=== PATIENT | female | born 1995 | race Hispanic/Latino ===

== ENCOUNTER 2025-03-07 20:21 | Emergency (ER) | payer SELFPAY ==
--- NOTE | ~2025-03-07 | XR_ITS ---
EXAM: XR ankle RT min 3V, XR foot RT min 3V DATE: 03/07/2025 21:24 HISTORY: pain s/p fall . COMPARISON: None available. FINDINGS: Images of the foot are limited by obliquity in the frontal image and lack of a true medial oblique view. Normal mineralization. Oblique fracture of the distal right fibula at the level of the joint line (Waller type B), with mild posterior medial displacement. Transverse fracture of the medial malleolus with posterior displacement and distraction. Comminuted appearing posterior malleolar frac ture with posterior displacement. The talar dome is posteriorly displaced relative to the anterior po rtion of the tibial plafond and remains associated with the displaced posterior portion. Tiny ossific fragment adjacent to the articulation between the navicular and first cuneiform. IMPRESSION: Trimalleolar fracture of the right ankle with posterior tibiotalar dislocation. Small ossific fragment adjacent to the articulation between the navicular and first cuneiform, may re present a small avulsion fracture fragment. CT of the foot would be helpful for further evaluation. Limited ability to assess for tarsometatarsal alignment in the provided images. Reviewed, dictated and finalized at location K. IMPRESSION: Trimalleolar fracture of the right ankle with posterior tibiotalar dislocation. Small ossific fragment adjacent to the articulation between the navicular and f irst cuneiform, may represent a small avulsion fracture fragment. CT of the aicha t would be helpful for further evaluation. Limited ability to assess for tarsometatarsal alignment in the provided images.
--- NOTE | ~2025-03-07 | XR_ITS ---
Right ankle Technique: AP and lateral views were obtained. Clinical History: Post reduction COMPARISON: 03/07/2025 at 9:18 PM Findings: Status post closed reduction of previously noted tibiotalar joint subluxation. Fractures of the distal tibia and distal fibula are unchanged in alignment. There is markedly improved alignment of the tibiotalar joint, with osseous alignment now near anatomic at the tibiotalar joint. Soft tissu es are otherwise unremarkable. Impression: Successful reduction of the tibiotalar joint with now near anatomic alignment. Stable trimalleolar fractures of the distal tibia and distal fibula. Reviewed, dictated and finalized at location . Impression: Successful reduction of the tibiotalar joint with now near anatomic alignment. Stable trimalleolar fractures of the distal tibia and distal fibula.
[2025-03-07 20:20] VITALS: BP 135/85; PULSE 89; RESP 17; TEMP 36.7; O2SAT 99
--- OUTSIDE RECORDS SUMMARY | 2025-03-07 21:07 | XMS_ITS | Encounter Summary ---
Author Organization [employer] Address [address] [address] Phone Care Team Providers Care Lead Machinist Name Role Phone Myrtle Castaneda APRN Primary Care Prov ider Encounter Details Date Type Department Care Team (Late st Contact Info) Description 02/10/2025 Results Follow-Up [facility] Medicine [address] [place] [address] Laura Espinoza FNP-C [address] [place] [address] VITAMIN B12 AND FOLATE, Vitamin D (1,25 Dihydroxy) Social History Tobacco Use Types Packs/Day Years Used Date Smoking Tobacco: Never Passive Smoke Exposure: Never Smokeless Tobacco: Never Alcohol Use Standard Drinks/Week Comments Never 0 (1 standard drink = 0.6 oz pur e alcohol) PHQ-9 Answer Date Recorded Patient Health Questionnaire-9 Score 0 01/04/2025 Intimate Partner Violence Answer Date R ecorded Feels physically and emotionally safe Not on wilian e 01/12/2022 Fear of partner Not on file 01/12/2022 Housing Stability Answer Date Recorded Housing situation Not on file 01/12/2022 Worried about losing housing Not on file 05/2022 Estimated Date of Delivery Comme nts Yes 07/24/2025 Based on last me nstrual period of 10/17/2024 (Exact Date) Sex and Gender Information Value Date Recorded Sex Assigned at Female 01/08/2024 9:53 AM EDT Legal Sex Female 10:55 AM EST Gender Identity Female 12/06/2021 10:55 AM EST Sexual Orientation Straight 12/06/2021 10 :55 AM EST documented as of this encounter Miscellaneous Notes * Result Encounter Note - ASHLY Chaudhary - 02/10/2025 10:03 AM EDT Hi good morning, I never ordered this labs. This is a OBG pt. She was last seen by you. Thanks. documented in this encounter Plan of Treatment Not on file documented as of this encounter Visit Diagnoses Not on filedocumented in this encounter Additional Health Concerns Assessment Noted Time PHQ-9 Depression Total Score: 0 01/05/20 25 9:13 AM EDT documented as of this encounter Care Teams Lead Machinist Relationship Specialty Start Date End Date Myrtle Castaneda APRN [address] [place] [address] PCP - General Family Medicine 03/03/24 documented as of this encounter
--- OUTSIDE RECORDS SUMMARY | 2025-03-07 21:07 | XMS_ITS | Clinical Summary ---
Author Organization [facility] Address [address] [place] [id number] Care Team Providers Care Exercise Teacher Name Role Phone Unavailable Primary Care Provider Unavailabl e Social History Tobacco Use Types Packs/Day Years Used Date Smoking Tobacco: Never Assessed [facility] Housing Answer Date Recorded Living Situation Not on file 05/23/2023 Housing Problems Not on file 05/23/2023 [facility] Safety Answer Date Recorded Threatened Not on file 05/23/2023 Insulted Not on file 05/23/2023 Physically Hurt Not on file 05/23/2023 Scream Not on file 05/23/2023 Comments Unknown Sex and Gender Information Value Date Recorded Sex Assigned at Not on file Legal Sex Female 6:31 AM EDT Gender Identity Not on file Sexual Orientation Not on file Plan of Treatment Not on file Advance Directives Documents on File Type Date Recorded Patient Electrical Helper Expl anation Advanced Directive Patient Generated 03/22/2021 ADVANCE DIRECTIVE DOCUMENT
--- OUTSIDE RECORDS SUMMARY | 2025-03-07 21:07 | XMS_ITS | Clinical Summary ---
Author Organization [facility] Address [address] [address] Phone Care Team Providers Care Industrial Technology Education Teacher Name Role Phone Myrtle Castaneda APRN Primary Care Prov ider Allergies No known active allergies Medications levonorgestrel-eth inyl estradiol (Aviane) 0.1-20 MG-MCG tabletIndications: Encounter for surveillance of contraceptive pills Take 1 tablet by mouth in the morning. 84 tablet 3 08/27/2024 9:33 AM EST 4 03/19/20 25 Active albuterol (Ventolin HFA) 108 (90 Base) MCG/ACT inhalerIndications :Cough, unspecified type Inhale 2 puffs every 4 (four) hours if needed for wheezing or shortness of breath. 18 g 09/08/2024 3:04 PM EST 4 09/08/20 25 Active multivitamin () 27-0.8 MG tabletIndications: Amenorrhea Take 1 tablet by mouth in the morning. 30 tablet 11 5 Active aspirin 81 MG chewable tablet Chew 1 tablet (81 mg) in the morning. 90 tablet 2 02/04/2025 9:41 AM EDT 5 02/05/20 26 Active hydrocortisone (Anusol-HC) 2.5 % rectal cream Insert into the rectum in the morning and at bedtime. 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 We reviewed the role of low dose aspirin (81 mg daily) for pre-e prevention in view of multiple moderate risk for developing pre-e including nulliparity, obesity, family history of pre-e (mother/sister), socioeconomic factors (, low socioeconomic status), AMA, personal history factors (low weight or SGA), previous adverse outcomes, >10 year interval or IVF . Therapy should be initiated 12 weeks gestational and ideally prior to 16 weeks gestation and continuing until delivery. However, the USPSTF endorses initiation to 26 weeks gestation. Supervision of other normal , antepartum ([facility] ([facility]) 12/07/2024 Overview (02/24/2025): GA at initial visit = 7w2d Final EDC = based on LMP = 1st sono (date) = 12/14 @ 8 w 2 d Initial BMI = 29 [] Baby ASA = ordered 02/01/25 [] Early GTT screening = [] NOB LABS = O+/antibody screen negative/H&H 12.9/39.4/Rubella immune/HbsAg not reactive/HCV not reactive/RPR Negative/HIV Negative/Pap no abnormalities/GC&CT Negative/Sickle cell Negative/UDS Negative/Urine Cx Negative [] HgbA1C = 5.0 [] Pap = NILM [] NIPT = low risk, female [] Carrier = negative [] Serum AFP (15-22.6 weeks) = ordered 02/01/25 [] Anatomy U/S =02/23/25 18w3d breech, posterior placenta, 3VC, normal cord insertion, EFW 284 g (89%), No identified abnormalities. No abnormalities. Posterior low-lying placenta 1.2 cm from cervical os. Recommendation Follow up ultrasound for growth and reassessment of the placental location at 30-32 weeks [] 24-28 wk labs = [] contraception = [] Breast/bottle = [] Gender of fetus = [] circumcision if boy = [] 30-32 week US for growth = [] 36 weeks labs= Immunizations: [] COVID vac = [] Flu vac = [] TDAP (28+0 - 36+6 wga) = [] RSV/Abrysvo (32+0 - 36+6 wga) = Plan: [] Delivery location = [] Anesthesia in labor = H/O scoliosis 09/09/2024 Chronic midline low back pain without sciatica 1 11/10/2023 Hemorrhoids 09/09/2024 Depression 09/09/2024 Overview (12/07/2024): 12/07/24 Symptoms are stable. Patient denies suicidal or homicidal ideation. Plan to continue current management. Plan to re-evaluate patient at followup; patient also referred to counseling services and community resources. Patient was advised to call or come in if symptoms worsen. Patient verbalized understanding. Estimated Date of Delivery Comme nts Yes 07/24/2025 Based on last me nstrual period of 10/17/2024 (Exact Date) Resolved Problems Problem Noted Date Diagnosed Date Resolved Date Amenorrhea 11/16/2024 12/07/2024 Overweight (BMI 25.0-29.9) 11/16/2024 0 12/07/2024 Assessment & Plan (11/16/2024 2:27 PM EST): Counseled on lifestyle & dietary modifications to decrease intake of greasy, fatty foods and increase physical activity. Urinary tract infection without hematuria 01/24/2024 09/08/2024 Assessment & Plan (01/24/2024 4:43 PM EDT): Patient present with no symptom, but her urine culture shows growth of several different bacteria, which is why it is interpreted as a UTI for which treatment with Amoxicillin 500 mg BID for 7 days. Follow up 2 weeks. increase fluids to minimum 2 liter per day sitz bath for comfort otc meds for pain tylenol or ibuprofen rx as ordered rtc if not improved in 7 days Encounter for routine adult health examination with abnormal findings 01/08/202409/08 Assessment & Plan (01/08/2024 11:44 AM EDT): Patient present for annual physical, Lab work was ordered and follow up in 2 weeks. Encounters Date Type Department Care Team Description 02/10/2025 Results Follow-Up [facility] [address] [place] [phone] Laura Espinoza FNP-C VITAMIN B12 AND FOLATE, Vitamin D (1,25 Dihydroxy) 02/04/2025 10:00 AM EDT Lab [facility] [address] [place] [phone] Other fatigue 02/04/2025 Orders Only [address] [phone] Mara Stack APRN 02/04/2025 Travel 02/02/2025 9:00 AM EDT Lab [facility] [address] [place] [phone] 02/01/2025 1:00 PM EDT Routine [address] [phone] Mara Stack APRN Supervision of other normal , antepartum ([facility] ([facility]) (Primary Dx); 15 weeks gestation of ([facility] ([facility]) 02/01/2025 Travel 01/04/2025 1:15 PM EDT Routine [address] [phone] Mara Justin APRN Supervision of other normal , antepartum ([facility]) (Primary Dx); 11 weeks gestation of ([facility] ([facility]) 01/04/2025 Travel 12/14/2024 1:00 PM EDT Ancillary Procedure [facility] ([facility] [place] [place]) [address] [place] [address] Supervision of other normal , antepartum ([facility] ([facility]) 12/14/2024 Travel 12/07/2024 1:30 PM EST Initial [facility] [address] [place] [address] Farida Rush NP GA: 7w2d 12/07/2024 Travel from Last 3 Months Immunizations Immunization Administration Dates Next Due HPV 9-Valent 02/25/2020 Influenza, split virus, triv alent, injectable, contains preservative 09/22/2020 MMR 02/25/2020,01/28/2020 TD (adult), 2 Lf tetanus tox oid, preservative free, adsorbed 02/25/2020 Tdap 01/28/2020 Family History Medical History Relation Name Comments No Known Problems Father No Known Problems Mother Relation Name Status Comments Father Alive Mother Alive Social History Tobacco Use Types Packs/Day Years Used Date Smoking Tobacco: Never Passive Smoke Exposure: Never Smokeless Tobacco: Never Tobacco Cessation:Counseling Given: Yes Alcohol Use Standard Drinks/Week Comments Never 0 [...] Orientation Straight 12/06/2021 10 :55 AM EST Last Filed Vital Signs Vital Sign Reading Time Taken Comments Blood Pressure 100/65 02/01/2025 1:16 PM EDT Pulse 80 02/01/2025 1:16 PM EDT Temperature 36.2 C (97.1 F) 02/01/2025 1:16 PM EDT Respiratory Rate 19 02/01/2025 1:16 PM EDT Oxygen Saturation 98% 02/01/2025 1:16 PM EDT Inhaled Oxygen Concentration - - Weight 82.6 kg (182 lb 3.2 oz) 02/01/2025 1:16 P M EDT Height 165.1 cm (5' 5) 02/01/2025 1:16 PM EDT Body Mass Index 30.32 02/01/2025 1:16 PM EDT Plan of Treatment Health Maintenance Due Date Last Done Comments Dental Oral Exam 1994 Dental Prophylaxis 1994 Dental X-Rays 1997 Hepatitis B Vaccines (1 of 3 - 19+ 3-dose series) 2013 HPV Vaccines (2 - 3-dose series) 03/24/2020 02/25/2020 Varicella Vaccines (1 of 2 - 13+ 2-dose series) 03/24/2020 DTaP/Tdap/Td Vaccines (3 - T d or Tdap) 08/27/2020 02/25/2020, 01/28/2020 HPV/Cotest 2024 COVID-19 Vaccine (3 - 2023-2 5 season) 2024 03/01/2021, 02/01/2021 Well Adult Exam (Age 18+ Annual Physical) 01/07/2025 01/08/2024 Influenza Vaccine (Season Ended) 2025 09/22/2020 Cervical Cancer Screening 12/08/2027 Pap Smear 12/08/2027 12/07/2024, 06/01/2021, 04/03/2019 Zoster Vaccines (1 of 2) 2044 MMR Vaccines Completed 02/25/2020, 01/28/2020 HIV Screening Completed 12/07/2024, 01/09/2024, 04/03/2019 Hepatitis C Screening Completed 12/07/2024 , 01/09/2024 HIB Vaccines Aged Out No longer eligi ble based on patient's age to complete this topic Hepatitis A Vaccines Aged Out No long er eligible based on patient's age to complete this topic IPV Vaccines Aged Out No longer eligi ble based on patient's age to complete this topic Meningococcal B Vaccine Aged Out No l onger eligible based on patient's age to complete this topic Meningococcal Vaccine Aged Out No judy verenice eligible based on patient's age to complete this topic Pneumococcal Vaccine: 0-49 Years Aged Out No longer eligible b ased on patient's age to complete this topic Rotavirus Vaccines Aged Out No longer eligible based on patient's age to complete this topic Procedures Procedure Name Priority Date/Time Associated Diagnosis Comments US OB 14+ WEEKS ANATOMY SCAN Routine 02/23/2025 Supervision of other normal , antepartum (HCC (HHS) VITAMIN D (1,25 DIHYDROXY) Routine 02/04/2025 9:05 AM EDT Other fatigue VITAMIN B12 AND FOLATE Routine 9:05 AM EDT Other fatigue TEST IN QUESTION- MISLABELED NAME Routine 02/02/2025 9:19 AM EDT ALPHA FETOPROTEIN, MATERNAL Routine 02/02/2025 9:18 AM EDT Supervision of other normal , antepartum (HCC (HHS) POCT URINALYSIS DIPSTICK - MANUALLY RESULTED Routine 02/01/2025 1:26 PM EDT Supervision of other normal , antepartum (HCC (HHS) HORIZON 4 (SMA, CF, FRAGILE X, DMD) Routine 01/15/2025 4:47 PM EDT Supervision of other normal , antepartum (HCC (HHS) PANORAMA TEST Routine 11:33 PM EDT Supervision of other normal , antepartum (HCC (HHS) POCT URINALYSIS DIPSTICK - MANUALLY RESULTED Routine 01/04/2025 1:14 PM EDT 11 weeks gestation of (HCC (HHS) US OB LIMITED 1+ FETUSES Routine 025 1:33 PM EDT Supervision of other normal , antepartum (HCC (HHS) DRUG MONITORING TEMPLATE Routine 025 2:29 PM EST URINE CULTURE Routine 12/07/2024 2:29 PM EST Supervision of other normal , antepartum (HCC (HHS) DRUG MONITOR, PANEL 1, SCREEN, URINE Routine 12/07/2024 2:29 PM EST Supervision of other normal , antepartum (HCC (HHS) RUBELLA ANTIBODY, IGG Routine 12/07/2024 2:29 PM EST Supervision of other normal , antepartum (HCC (HHS) RPR, REFLEX TO TITER Routine 12/07/2024 2:29 PM EST Supervision of other normal , antepartum (HCC (HHS) HIV-1/2 ANTIGEN AND ANTIBODIES W/REFLEXES Routine 12/07/2024 2:29 PM EST Supervision of other normal , antepartum (HCC (HHS) HEPATITIS C AB W/RFL Routine 12/07/2024 2:29 PM EST Supervision of other normal , antepartum (HCC (HHS) HEMOGLOBINOPATHY EVALUATION Routine 12/07/2024 2:29 PM EST Supervision of other normal , antepartum (HCC (HHS) HEPATITIS B SURFACE ANTIGEN Routine 12/07/2024 2:29 PM EST Supervision of other normal , antepartum (HCC (HHS) CBC Routine 12/07/2024 2:29 PM EST Supervision of other normal , antepartum (HCC (HHS) ANTIBODY SCREEN Routine 12/07/2024 2:29 PM EST Supervision of other normal , antepartum (HCC (HHS) ABO/RH Routine 12/07/2024 2:29 PM EST Supervision of other normal , antepartum (HCC (HHS) HEMOGLOBIN A1C Routine 12/07/2024 2:29 PM EST Supervision of other normal , antepartum (HCC (HHS) IMAGE-GUIDED PAP W/AGE BASED SCR,W/CT/NG/TRICH Routine 12/07/2024 2:01 PM EST Supervision of other normal , antepartum (HCC (HHS) from Last 3 Months Results * US OB 14+ weeks anatomy scan (02/23/2025) Anatomical Region Laterality Modality Body Ultrasound 02/23/2025 Mara Stack APRN IMG OB US PROCEDURES F inal Result * (ABNORMAL) Vitamin D (1,25 Dihydroxy) (02/04/2025 9:05 AM EDT) VITAMIN D, 1, 25 (OH)2, TOTAL 108(H) 18 - 72 pg/mL [facility] CALCITRIOL(1, 25 DI-OH VIT D) 108 pg/mL [facility] VITAMIN D2, 1, 25 (OH)2 <8 pg/mL [facility] Comment: Vitamin D3, 1,25(OH)2 indicates both endogenous production and supplementation. Vitamin D2, 1,25(OH)2 is an indicator of exogenous sources, such as diet or supplementation. Interpretation and therapy are based on measurement of Vitamin D,1,25(OH)2, Total. This test was developed and its analytical performance characteristics have been determined by [facility], [place], [place]. It has not been cleared or approved by the FDA. This assay has been validated pursuant to the CLIA regulations and is used for clinical purposes. Blood Venous blood specimen / Unknown 02/04/2025 9:05 AM EDT 02/05/2025 12:49 AM EDT Laura SOLIS-C LAB BLOOD ORDERABLES Final Result [facility] [address] [place], [place] , [place] * VITAMIN B12 AND FOLATE (02/04/2025 9:05 AM EDT) VITAMIN B12 346 200 - 1,100 pg/mL [facility] Comment: Please Note: Although the reference range for vitamin B12 is 200-1100 pg/mL, it has been reported that between 5 and 10% of patients with values between 200 and 400 pg/mL may experience neuropsychiatric and hematologic abnormalities due to occult B12 deficiency; less than 1% of patients with values above 400 pg/mL will have symptoms. FOLATE >24.0 ng/mL [facility] Comment: Reference Range Low: <3.4 Borderline: 3.4-5.4 Normal: >5.4 Blood Venous blood specimen / Unknown 02/04/2025 9:05 AM EDT 02/05/2025 12:49 AM EDT Laura Espinoza [facility] LAB BLOOD ORDERABLES Final Result Performing Organization Address City/[facility]/ZIP Co de Phone Number [facility] [address] [place] [address], * TEST IN QUESTION- MISLABELED NAME (02/02/2025 9:19 AM EDT) MESSAGE SEE NOTE [facility] Comment: The labeling of the requisition and/or specimen(s) is in question. SPECIMEN TYPE SEE NOTE [facility] Comment:FLUORIDE/OXALATE (GR AY-TOP) WHOLE BLOOD TEST ORDERED [phone] [facility] NAME ON REQUISITION: XIOMARA Sahu [facility] DATE RECEIVED: [phone] [facility] Comment: To prevent further delays in testing please contact us immediately, please call [phone] ([phone]). 02/02/2025 9:19 AM EDT 02/02/2025 11:34 PM EDT Mara Justin YORDAN LAB BLOOD ORDERABLES Final Re sult [facility] [address] [place] [address], * Alpha fetoprotein, maternal (02/02/2025 9:18 AM EDT) INTERPRETATIONS SEE NOTE [facility] Comment: Screen negative for open NTD. NTD RISK 1 IN [address] [facility] AFP 42.9 ng/mL [facility] AFP MOM 1.68 [facility] COMMENT SEE NOTE [facility] Comment: This patient's BRADLEY (estimated date of delivery) was used to calculate the gestational age. The AFP test result indicates that this patient is screen negative for open NTD. It should be noted that normal test results can never guarantee the of a normal baby and that 2-3% of newborns have some type of physical or mental defect, many of which are undetectable through any known diagnostic technique. COMMENT SEE NOTE [facility] Comment: This is a screening test, not a diagnostic test. This risk assessment report is based in part on demographic data provided by the ordering physician. Please notify the laboratory promptly if any data are incorrect. For assistance with recalculations, please call your local [facility] laboratory. For assistance with interpretation of these results, please contact your Local [facility] genetic counselor or call [phone]). Interpretive Cutoffs Screen Positive for Open NTD: > or = 2.50 adjusted MOM > or = 1.90 adjusted MOM for insulin-dependent diabetics > or = 4.00 adjusted MOM for twins > or = 3.50 adjusted MOM for twins insulin-dependent diabetics > or = 4.50 adjusted MOM for triplets For additional information, please refer to http://education.[employer]/faq/POP41x0 (This link is being provided for informational/ educational purposes only.) GESTATIONAL AGE 15.4 weeks [facility] MATERNAL WEIGHT 179 lbs [facility] EST'D DATE OF DELIVERY 07/24/2025 [facility] BRADLEY DETERMINED BY LMP [facility] MOTHER'S ETHNIC ORIGIN [facility] NUMBER OF FETUSES 1 [facility] INSULIN DEP DIABETES NO [facility] REPEAT SPECIMEN NO [facility] HX OF NEURAL TUBE DEFECTS NO [facility] PREV DOWN SYND NO [facility] DONOR EGG NO [facility] DONOR AGE - EGG RETRIEVAL NOT GIVEN [facility] Blood Venous blood specimen / Unknown 02/02/2025 9:18 AM EDT 02/05/2025 12:49 AM EDT Mara Stack APRN LAB BLOOD ORDERABLES F inal Result [facility] [address] [place] [address], * POCT Urinalysis Dipstick - Manually Resulted (02/01/2025 1:26 PM EDT) Only the most recent of2 resultswithin the time period is included. Color, UA Yellow Yellow Clarity, UA Clear Clear Glucose, UA Negative Negative Bilirubin, UA Negative Negative Ketones, UA Negative Negative Spec Grav, UA 1.020 1.001 - 1.030 Blood, UA Negative Negative pH, UA 6.0 5.0 - 8.0 Protein, UA Negative Negative Urobilinogen, UA 0.2 0.2 - 1.0 Leukocytes, UA Negative Negative Nitrite, UA Negative Negative Appearance, Fluid Clear Clear Urine 02/01/2025 1:26 PM EDT Mara Stack APRN POINT OF CARE TEST ENT ER/EDIT ORDERABLES Final Result * HORIZON 4 (SMA, CF, FRAGILE X, DMD) (01/15/2025 4:47 PM EDT) REPORT SUMMARY Negative 01/15/2025 4:47 PM EDT [facility] Comment:Negative for 4 out o f 4 diseases. CYSTIC FIBROSIS Negative 4:47 PM EDT [facility] DUCHENNE/CRUZ MUSCULAR DYSTROPHY Negative 01/15/2025 4:47 PM EDT [facility] FRAGILE X SYNDROME Negative 01/15/2025 4:47 PM EDT [facility] Comment: NEGATIVE Fragile X Syndrome (X-linked) results 30 and 30 CGG repeats were detected in the FMR1 genes. SPINAL MUSCULAR ATROPHY Negative 01/15/2025 4:47 PM EDT [facility] Comment: NEGATIVE Spinal Muscular Atrophy (SMA) Results SMN1: Two copies; [id number]: absent; the absence of the [id number] variant decreases the chance to be a silent (2+0) carrier. PANEL NOTES See Notes 01/15/2025 4:47 PM EDT [facility] REPORT NOTE See Notes 01/15/2025 4:47 PM EDT [facility] FOOTNOTES See Notes 01/15/2025 4:47 PM EDT [facility] Comment: Please see the attached PDF for information regarding Conditions, Methodology, Disclaimers, and further information. Test performed by [facility]. : [id number] [facility], [facility], [address], [place] [address] CLIA ID #[id number] CLIA Day Care Director: Chantelle Young, Ph.D., FACMG Blood specimen (specimen) Venous blood specimen / Unknown 01/15/2025 4:47 PM EDT Mara Justin APRN LAB MOLECULAR DIAGNOSTICS ORD ERABLES Final Result [facility] [address] [place] [address], * [facility] (01/13/2025 11:33 PM EDT) REPORT SUMMARY LOW RISK 01/13/2025 11:33 PM EDT [facility] Comment:LOW RISK REPORT NOTE See Notes 01/13/2025 11:33 PM EDT [facility] GENDER OF FETUS Female 11:33 PM EDT [facility] FRACTION 9.3% 01/13/2025 11:33 PM EDT [facility] TRISOMY 21 RESULT TEXT Low Risk 01/13/2025 11:33 PM EDT [facility] TRISOMY 21 AGE-BASED RISK TEXT 1/543 (0.18%) 01/13/2025 11:33 PM EDT [facility] TRISOMY 21 RISK SCORE TEXT <1/10,000 (<0.01%) 01/13/2025 11:33 PM EDT [facility] TRISOMY 18 RESULT TEXT Low Risk 01/13/2025 11:33 PM EDT [facility] TRISOMY 18 AGE-BASED RISK TEXT 10/07,263 (0.08%) 01/13/2025 11:33 PM EDT [facility] TRISOMY 18 RISK SCORE TEXT <1/10,000 (<0.01%) 01/13/2025 11:33 PM EDT [facility] TRISOMY 13 RESULT TEXT Low Risk 01/13/2025 11:33 PM EDT [facility] TRISOMY 13 AGE-BASED RISK TEXT 3,980 (0.03%) 01/13/2025 11:33 PM EDT [facility] TRISOMY 13 RISK SCORE TEXT <1/10,000 (<0.01%) 01/13/2025 11:33 PM EDT [facility] MONOSOMY X RESULT TEXT Low Risk 01/13/2025 11:33 PM EDT [facility] MONOSOMY X AGE-BASED RISK TEXT 1255 (0.39%) 01/13/2025 11:33 PM EDT [facility] MONOSOMY X RISK SCORE TEXT <1/10,000 (<0.01%) 01/13/2025 11:33 PM EDT [facility] TRIPLOIDY RESULT TEXT Low Risk 06/2025 11:33 PM EDT [facility] 22Q11.2 DELETION SYNDROME RESULT TEXT Low Risk 01/13/2025 11:33 PM EDT [facility] 22Q11.2 DELETION SYNDROME POPULATION-BASED RISK TEXT 1/2,000 01/13/2025 11:33 PM EDT [facility] 22Q11.2 DELETION SYNDROME RISK SCORE TEXT 1/12,000 01/13/2025 11:33 PM EDT [facility] FOOTNOTES See Notes 01/13/2025 11:33 PM EDT [facility] Comment: Testing Methodology DNA isolated from maternal blood, which contains placental DNA, is amplified at specific loci using a targeted PCR assay and is sequenced using a high- throughput sequencer. fraction is determined using a proprietary algorithm incorporating data from single nucleotide polymorphism-based (SNP-based) next-generation sequencing [Perguy E et al. Obstet Gynecol. 2014 Aug;124(2 Pt 1):210-8]. If there is sufficient fraction, sequencing data is analyzed using a proprietary SNP- based algorithm to determine the copy number for chromosomes 13, 18, 21, X and Y. If ordered, specific microdeletions will be evaluated using similar methodology [Tammy LIND et al. Am J Obstet Gynecol. 2015 Dec;212(3):332.e1-9]. If the fraction is insufficient, signal enhancement and/or an additional algorithm to determine whether there is an increased risk for triploidy, trisomy 18, and trisomy 13 may be utilized [Jericho et al. Ultrasound Obstet Gynecol 2019; 53:73-79]. However, some samples will not produce a result due to failure to meet the necessary quality thresholds. This test has been validated on women with a de guzman, twin or egg donor of at least nine weeks gestation. A result will not be available for higher order multiples and multiple gestation pregnancies with an egg donor or surrogate, or bone marrow transplant recipients. Complete test panel is not available for twin gestations and pregnancies achieved with an egg donor or surrogate. For twin pregnancies with a fraction value below the threshold for analysis, a sum of the fractions for both twins will be reported. As this assay is a screening test and not diagnostic, false positives and false negatives can occur. High risk test results need diagnostic confirmation by alternative testing methods. Low risk results do not fully exclude the diagnosis of any of the syndromes nor do they exclude the possibility of other chromosomal abnormalities or defects, which are not a part of this test. Potential sources of inaccurate results include, but are not limited to, mosaicism, low fraction, limitations of current diagnostic techniques, or misidentification of samples. This test will not identify all deletions associated with each microdeletion syndrome. This test has been validated for deletions > = 0.5 Mb within the 22q11.2 A-D region. This test has been validated on full region deletions only for 1p36 deletion syndrome, Cri-du-chat syndrome, Prader Willi syndrome and Angelman syndrome and may be unable to detect smaller deletions. Microdeletion risk score may be dependent upon fraction, as deletions on the maternally inherited copy are difficult to identify at lower fractions. Test results should always be interpreted by a clinician in the context of clinical and familial data with the availability of genetic counseling when appropriate. Disclaimers The extraction, library preparation, and sequencing of this test were performed by [facility] [address], [place] [address] (CLIA ID [id number]). The data analysis and reporting of this test were performed by [facility] [address], [place] [address] (CLIA ID [id number]). The performance characteristics of this test were developed by [facility].(CLIA ID [id number]). This test has not been cleared or approved by the U.S. Food and Drug Administration (FDA). These laboratories are regulated under CLIA as qualified to perform high-complexity testing. 2020 [facility]. All Rights Reserved. Please refer to the attached PDF report Reviewed By: Ayanna Lopez M.D., Ph.D., [facility], Senior Seed Sorter [facility] Day Care Director: Chantelle Young, Ph.D., [facility] IF THE ORDERING PROVIDER HAS QUESTIONS OR WISHES TO DISCUSS THE RESULTS, PLEASE CONTACT US AT [phone] #[phone]. Ask for the [facility] onion farmer. Blood specimen (specimen) Venous blood specimen / Unknown 01/13/2025 11:33 PM EDT Mara Justin APRN LAB MOLECULAR DIAGNOSTICS ORD ERABLES Final Result [facility] [address] [place] [address], * HEPATITIS C AB W/RFL (12/07/2024 2:29 PM EST) HEPATITIS C AB NON-REACTI VE NON-REACTI VE [facility] Comment: HCV antibody was non-reactive. There is no laboratory evidence of HCV infection. In most cases, no further action is required. However, if recent HCV exposure is suspected, a test for HCV RNA (test code 17032) is suggested. For additional information, please refer to http://education.[employer]/faq/RDG780 (This link is being provided for informational/ educational purposes only.) Blood Venous blood specimen / Unknown 12/07/2024 2:29 PM EST 12/07/2024 10:59 PM EST Farida Acevedojb LAB BLOOD ORDERABLES Final Resul t Performing Organization Address [facility] de Phone Number [facility] [address] [place] [address], * RPR, Reflex to Titer (12/07/2024 2:29 PM EST) Pathologist [facility] RPR NON-REACTI VE NON-REACTI VE [facility] Comment: No laboratory evidence of syphilis. If recent exposure is suspected, submit a new sample in 2-4 weeks. Blood Venous blood specimen / Unknown 12/07/2024 2:29 PM EST 12/07/2024 10:59 PM EST Farida Acevedojb LAB BLOOD ORDERABLES Final Resul t Performing Organization Address [facility] de Phone Number [facility] [address] [place] [address], * DRUG MONITOR, PANEL 1, SCREEN, URINE (12/07/2024 2:29 PM EST) AMPHETAMINES UR NEGATIVE <500 ng/mL [facility] Comment: See Note A See Note A BARBITURATES UR NEGATIVE <300 ng/mL [facility] Comment: See Note A See Note A BENZODIAZEPINES UR NEGATIVE <100 ng/mL [facility] Comment: See Note A See Note A COCAINE METABOLITE UR NEGATIVE <150 ng/mL [facility] Comment: See Note A See Note A MARIJUANA METABOLITE UR NEGATIVE <20 ng/mL [facility] Comment: See Note A See Note A METHADONE METABOLITE UR NEGATIVE <100 ng/mL [facility] Comment: See Note A See Note A OPIATES NEGATIVE <100 ng/mL [facility] Comment: See Note A See Note A OXYCODONE-UR NEGATIVE <100 ng/mL [facility] Comment: See Note A See Note A PHENCYCLIDINE UR NEGATIVE <25 ng/mL [facility] Comment: See Note A See Note A CREATININE UR 122.6 > or = 20.0 mg/dL [facility] PH URINE 7.6 4.5 - 9.0 [facility] OXIDANT UR NEGATIVE <200 mcg/mL [facility] Urine 12/07/2024 2:29 PM EST 12/07/2024 11:14 PM EST [facility] ORDERABLES Final Resul t Performing Organization Address [facility] Co de Phone Number [facility] [place] [address] [place] [address], * DRUG MONITORING TEMPLATE (12/07/2024 2:29 PM EST) NOTES AND COMMENTS SEE NOTE Q [facility] Comment: This drug testing is for medical treatment only. Analysis was performed as non-forensic testing and these results should be used only by healthcare providers to render diagnosis or treatment, or to monitor progress of medical conditions. Note A: The results are presumptive; based only on screening methods, and they have not been confirmed by a definitive method. Healthcare Providers needing Interpretation assistance, please contact us at [phone] ) M-F, 8am to 10pm EST 12/07/2024 2:29 PM EST 12/07/2024 11:14 PM EST Farida Rush NP LAB BLOOD ORDERABLES Final Resul t Performing Organization Address [facility] Co de Phone Number [facility] [address] [place] [address], [place] * ABO/Rh (12/07/2024 2:29 PM EST) ABO/RH O [facility] RH RH(D) POSITIVE [facility] Comment: For additional information, please refer to http://education.[employer]/faq/MTF819 (This link is being provided for informational/ educational purposes only.) Blood Venous blood specimen / Unknown 12/07/2024 2:29 PM EST 12/07/2024 10:59 PM EST [facility] LAB BLOOD BANK TEST ORDERABLES F inal Result Performing Organization Address [facility]/ZIP Co de Phone Number [facility] [address] [place] [address], * Rubella antibody, IgG (12/07/2024 2:29 PM EST) RUBELLA IGG ABS 1.40 Index [facility] Comment: Index Interpretation ----- <0.90 Not consistent with immunity 0.90-0.99 Equivocal > or = 1.00 Consistent with immunity The presence of rubella IgG antibody suggests immunization or past or current infection with rubella virus. Blood Venous blood specimen / Unknown 12/07/2024 2:29 PM EST 12/07/2024 10:59 PM EST Farida [facility] LAB BLOOD ORDERABLES Final Resul t Performing Organization Address [facility] Co de Phone Number [facility] [address] [place] [address], * HIV-1/2 ANTIGEN AND ANTIBODIES W/REFLEXES (12/07/2024 2:29 PM EST) Pathologist [facility] HIV 1/2 AG/AB 4th Generation NON-REACT AMISH NON-REACT AMISH [facility] Comment: HIV-1 antigen and HIV-1/HIV-2 antibodies were not detected. There is no laboratory evidence of HIV infection. PLEASE NOTE: This information has been disclosed to you from records whose confidentiality may be protected by state law. If your state requires such protection, then the state law prohibits you from making any further disclosure of the information without the specific written consent of the person to whom it pertains, or as otherwise permitted by law. A general authorization for the release of medical or other information is NOT sufficient for this purpose. For additional information please refer to http://education.[employer]/faq/CBR967 (This link is being provided for informational/ educational purposes only.) The performance of this assay has not been clinically validated in patients less than 2 years old. Blood Venous blood specimen / Unknown 12/07/2024 2:29 PM EST 12/07/2024 10:59 PM EST Farida Rush SPANISH SPEAKING BABYSITTER LAB BLOOD ORDERABLES Final Resul t Performing Organization Address [facility] de Phone Number [facility] [address] [place] [address], * Hepatitis B surface antigen (12/07/2024 2:29 PM EST) Pathologist [facility] HEPATITIS B SURFACE AG NON-REACTI VE NON-REACTI VE [facility] Comment: For additional information, please refer to http://education.[employer]/faq/FVS354 (This link is being provided for informational/ educational purposes only.) Blood Venous blood specimen / Unknown 12/07/2024 2:29 PM EST 12/07/2024 10:59 PM EST Farida Rush SPANISH SPEAKING BABYSITTER LAB BLOOD ORDERABLES Final Resul t Performing Organization Address [facility] de Phone Number [facility] [address] [place] [address], * CBC (12/07/2024 2:29 PM EST) Pathologist [facility] WBC 7.9 3.8 - 10.8 Thousand/u L [facility] RBC 4.34 3.80 - 5.10 Million/uL [facility] HEMOGLOBIN 12.9 11.7 - 15.5 g/dL [facility] HEMATOCRIT 39.4 35.0 - 45.0 % [facility] MCV 90.8 80.0 - 100.0 fL [facility] MCH 29.7 27.0 - 33.0 pg [facility] MCHC 32.7 32.0 - 36.0 g/dL [facility] Comment: For adults, a slight decrease in the calculated MCHC value (in the range of 30 to 32 g/dL) is most likely not clinically significant; however, it should be interpreted with caution in correlation with other red cell parameters and the patient's clinical condition. RDW 12.1 11.0 - 15.0 % [facility] PLATELETS 207 140 - 400 Thousand/u L [facility] MPV 12.4 7.5 - 12.5 fL [facility] Blood Venous blood specimen / Unknown 12/07/2024 2:29 PM EST 12/07/2024 10:59 PM EST Farida Rush NP LAB BLOOD ORDERABLES Final Resul t [facility] [address] [place] [address], [place] * Hemoglobinopathy evaluation (12/07/2024 2:29 PM EST) Pathologist [facility] RBC 4.33 3.80 - 5.10 Million/u L [facility] HEMOGLOBIN 13.0 11.7 - 15.5 g/dL [facility] HEMATOCRIT 40.7 35.0 - 45.0 % [facility] [place] MCV 94.0 80.0 - 100.0 fL [facility] [place] MCH 30.0 27.0 - 33.0 pg [facility] RDW 12.6 11.0 - 15.0 % [facility] HEMOGLOBIN A 97.1 >96.0 % [facility] [place] HEMOGLOBIN F <1.0 <2.0 % [facility] HEMOGLOBIN A2 (QUANT) 2.9 2.0 - 3.2 % [facility] [place] HGB FRACT INTERP SEE NOTE [facility] [place] Comment: Normal phenotype. Blood Venous blood specimen / Unknown 12/07/2024 2:29 PM EST 12/07/2024 10:59 PM EST Farida Rush NP LAB BLOOD ORDERABLES Final Resul t [facility] [address] [place] [address], * Antibody screen (12/07/2024 2:29 PM EST) Pathologist [facility] ANTIBODY SCREEN NO ANTIBODIES DETECTED [facility] Comment: Reference range No antibodies detected This assay is a screening test for the detection of red blood cell antibodies. The test is not to be used for pretransfusion screening or for the medical management of an alloimmunized . Blood Venous blood specimen / Unknown 12/07/2024 2:29 PM EST 12/07/2024 10:59 PM EST Farida Victor Manuel LAB BLOOD BANK TEST ORDERABLES F inal Result Performing Organization Address [facility] Co de Phone Number [facility] [address] [place] [address], * Urine culture (12/07/2024 2:29 PM EST) CULTURE, URINE, ROUTINE SEE NOTE [facility] Comment: CULTURE, URINE, ROUTINE Micro Number: [id number] Test Status: Final Specimen Source: Urine Specimen Quality: Adequate Result: No Growth Urine 12/07/2024 2:29 PM EST 12/07/2024 11:14 PM EST Farida Victor Manuel LAB URINE ORDERABLES Final Resul t Performing Organization Address [facility] de Phone Number [facility] [address] [place] [address], * Hemoglobin A1c (12/07/2024 2:29 PM EST) HEMOGLOBIN A1C 5.0 <5.7 % of total Hgb [facility] Comment: For the purpose of screening for the presence of diabetes: <5.7% Consistent with the absence of diabetes 5.7-6.4% Consistent with increased risk for diabetes (prediabetes) > or =6.5% Consistent with diabetes This assay result is consistent with a decreased risk of diabetes. Currently, no consensus exists regarding use of hemoglobin A1c for diagnosis of diabetes in children. According to [place] Diabetes Association (ADA) guidelines, hemoglobin A1c <7.0% represents optimal control in non- diabetic patients. Different metrics may apply to specific patient populations. Standards of Medical Care in Diabetes(ADA). Blood Venous blood specimen / Unknown 12/07/2024 2:29 PM EST 12/07/2024 10:59 PM EST us Farida Rush NP LAB BLOOD ORDERABLES Final Resul t [facility] [address] [place] [address], [place] * IMAGE-GUIDED PAP W/AGE BASED SCR,W/CT/NG/TRICH (12/07/2024 2:01 PM EST) COMMENT SEE NOTE [facility] Comment: This order for age-based cervical cancer and STI screening follows ACOG guidelines(PB 168, 140, MIV541). See individual assays for performing site location. CLINICAL INFORMATION None given [facility] LMP None given [facility] PREV. PAP None given [facility] PREV. BX None given [facility] SOURCE None given [facility] Specimen adequacy: SATISFACTORY FOR EVALUATION Age and/or menstrual status not provided [facility] PAP SMEAR Cytology Results: Negative for intraepithelial lesion or malignancy. [facility] COMMENT This Pap test has been evaluated with computer assisted technology. [facility] PERFORMED BY SEE NOTE [facility] Comment: LOU MCLEOD(ASCP) CT screening location: [facility] [address] [place] [address] CLIA: [id number] (ALWAYS MESSAGE) SEE NOTE [facility] Comment: EXPLANATORY NOTE: The Pap is a screening test for cervical cancer. It is not a diagnostic test and is subject to false negative and false positive results. It is most reliable when a satisfactory sample, regularly obtained, is submitted with relevant clinical findings and history, and when the Pap result is evaluated along with historic and current clinical information. HPV mRNA E6/E7 Not Detected Not Detected [facility] Comment: Methodology: Linen Room Attendant-Mediated Amplification This assay detects E6/E7 viral messenger RNA (mRNA) from 14 high-risk HPV types (16,18,31,33,35,39,45,51,52,56,58,59,66,68). Cervical sources are required for HPV testing. If a vaginal source from a patient who has had a total hysterectomy with removal of cervix was submitted, please contact the testing laboratory for alternative testing options. For additional information, please refer to http://[employer]/faq/LZN938f4 (This link if provided for information/ educational purposes only.) CHLAMYDIA TRACHOMATIS, ANN NOT DETECTED NOT DETECTED [facility] NEISSERIA GONORRHOEAE, ANN NOT DETECTED NOT DETECTED [facility] (ALWAYS MESSAGE) SEE NOTE [facility] Comment: The analytical performance characteristics of this assay, when used to test SurePath(TM) specimens have been determined by [facility]. The modifications have not been cleared or approved by the FDA. This assay has been validated pursuant to the CLIA regulations and is used for clinical purposes. For additional information, please refer to https://[employer]/faq/WFL436 (This link is being provided for information/ educational purposes only.) TRICHOMONAS VAGINALIS, QL TMA, PAP VIAL NOT DETECTED NOT DETECTED [facility] Comment: The analytical performance characteristics of this assay have been determined by [facility] [employer]. The modifications have not been cleared or approved by the FDA. This assay has been validated pursuant to the CLIA regulations and is used for clinical purposes. For additional information, please refer to http://[employer]/ faq/Trichomonastma (This link is being provided for information/ educational purposes only.) Swab 12/07/2024 2:01 PM EST 12/08/2024 12:30 AM EST Farida Rush NP LAB CYTOLOGY ORDERABLES Final Re sult [facility] [address] [place] [address], [facility] [address] [place] [address], from Last 3 Months Insurance [facility] [address] [place] [phone] [place] [phone] [address] [place] [phone] Care Teams Industrial Technology Education Teacher Relationship Specialty Start Date End Date Myrtle Castaneda APRN [address] [place], [place] [id number] PCP - General Family Medicine 03/03/24
--- OUTSIDE RECORDS SUMMARY | 2025-03-07 21:07 | XMS_ITS | Clinical Summary ---
Author Organization [facility] Address [address] [place] [address] Care Team Providers Care Music Instructor Name Role Phone Deniz Carranza MD Unavailable [phone] Encounters Date Type Department Care Team Description 02/23/2025 7:55 AM EDT - 02/23/2025 11:59 PM EDT Hospital Encounter RADIOLOGY - OB ULTRASOUND [address] [place] [address] Supervision of other normal , antepartum Discharge Disposition: Home or Self Care from Last 3 Months Social History Tobacco Use Types Packs/Day Years Used Date Smoking Tobacco: Never Assessed Comments Unknown Sex and Gender Information Value Date Recorded Sex Assigned at Not on file Legal Sex Female 3:50 PM EDT Gender Identity Not on file Sexual Orientation Not on file Plan of Treatment Health Maintenance Due Date Last Done Comments Depression Screening & Follo w Up 1994 HEPATITIS C SCREENING 2012 Weight Management (Adult) 2012 IMM SERIES: Hepatitis B Vaccine (1 of 3 - 19+ 3-dose series) 2013 Cervical Cancer Screening 2015 IMM SERIES: HPV Vaccines (2 - 3-dose series) 03/24/2020 02/25/2020 IMM SERIES: Varicella Vaccin es (1 of 2 - 13+ 2-dose series) 03/24/2020 IMM SERIES: SARS-COV2 and COVID-19 vaccines ( - season) 2024 03/01/2021, 02/01/2021 Influenza Vaccine (Season Ended) 2025 09/22/2020 IMM SERIES: DTAP/TDAP/TD/DTP (3 - Td or Tdap) 02/24/2030 02/25/2020, 01/28/2020 IMM SERIES: Zoster (1 of 2) 2044 IMM SERIES: MMR Vaccines Completed 020, 01/28/2020 IMM SERIES: HIB Vaccines Aged Out No longer eligible based on patient's age to complete this topic IMM SERIES: Hepatitis A Vaccine Aged Out No longer eligible b ased on patient's age to complete this topic IMM SERIES: Meningococcal ACWY Aged Out No longer eligible based on patient's age to complete this topic IMM SERIES: Meningococcal B Vaccines Aged Out No longer eligible b ased on patient's age to complete this topic IMM SERIES: Polio Vaccines Aged Out N o longer eligible based on patient's age to complete this topic IMM SERIES: Rotavirus Vaccines Aged Out No longer eligible based on patient's age to complete this topic Pneumococcal (0-5 years) and At-Risk Patients (6 to 64 Years) Aged Out No longer eligible b ased on patient's age to complete this topic Procedures Procedure Name Priority Date/Time Associated Diagnosis Comments UOB OB ULTRASOUND Routine 02/23/2025 9:2 9 AM EDT Supervision of other normal , antepartum from Last 3 Months Results * UOB OB ULTRASOUND (02/23/2025 9:29 AM EDT) Anatomical Region Laterality Modality Pelvis Ultrasound 02/23/2025 8:04 AM EDT Narrative 02/23/2025 9:53 AM EDT Indication ======== Detailed anatomy BMI > 30 Depression Hx of scoliosis NIPT low risk female AFP negative Method ====== Transabdominal and transvaginal ultrasound examination. View: Sufficient ========= Number of fetuses: 1 Dating ====== Date Details Gest. age BRADLEY LMP 10/17/2024 18 w + 3 d 07/24/2025 U/S 02/23/2025 based upon AC, BPD, Femur, HC 18 w + 4 d 07/23/2025 Assigned dating based on the LMP, selected on 02/23/2025 18 w + 3 d 07/24/2025 General Evaluation Cardiac activity present. FHR 144 bpm. movements: present. Presentation: breech Placenta: Placental site: posterior, low lying Umbilical cord: Cord vessels: 3 vessel cord. Insertion site: placental insertion: normal Amniotic fluid: Amount of AF: normal amount. MVP 3.2 cm Biometry BPD 39.7 mm 18w 0d 34% Hadlock OFD 54.3 mm 19w 2d 84% Charisma HC 150.6 mm 18w 0d 27% Hadlock Cerebellum tr 18.6 mm 18w 5d 55% Rollins Nuchal fold 3.4 mm AC 144.6 mm 19w 5d 87% Hadlock Femur 29.6 mm 19w 0d 70% Hadlock Humerus 28.5 mm 19w 1d 82% Charisma Weight Calculation: EFW 284 g 19w 1d 89% Hadlock EFW (lb,oz) 0 lb 10 oz EFW by Hadlock ([id number]) Head / Face / Neck Biometry: Coping Machine Assembler 4.4 mm CM 4.0 mm 31% Nicolaides Inner IOD 11.8 mm Nasal 6.0 mm bone Extremities / Bony Struc Biometry: Radius 22.5 mm 18w 1d 45% Charisam Ulna 26.9 mm 19w 5d 83% Charisma Tibia 23.1 mm 18w 1d 47% Charisma Fibula 23.0 mm 18w 0d 39% Charisma Anatomy The following structures appear normal: Head / Neck Cranium. Lateral ventricles. Choroid plexus. Midline falx. Cavum septi pellucidi. Cerebellum. Cisterna magna. Face Lips. Profile. Nose. Maxilla. Mandible. Orbits. Heart / Thorax 4-chamber view. RVOT view. LVOT view. 3-vessel view. 2-gynlmc-ozhdtgg view. Situs. Aortic arch view. Ductal arch view. Superior vena cava. Inferior vena cava. Diaphragm. Abdomen Cord insertion. Stomach. Kidneys. Bladder. Genitals. Spine Cervical spine. Thoracic spine. Lumbar spine. Sacral spine. Extremities / Skeleton Right arm. Left arm. Right leg. Left leg. The following structures were visualized: Face Lens. sex: female. Maternal Structures Cervix Cervical length 47.5 mm Right Ovary Normal Size 27 mm x 20 mm x 14 mm. Vol 3.9 cm Left Ovary Normal Size 23 mm x 21 mm x 27 mm. Vol 6.6 cm Pelletising Extruder Operator Comment Single IUP 18w 3d. Biometry is consistent with dates. Amniotic fluid volume appears normal. No identified abnormalities. A transvaginal exam was performed, a low-lying placenta is noted measuring 1.2 cm from the internal cervical os. Impression ========= Reassuring assessment of growth and anatomy. Posterior low-lying placenta. Recommendation Follow up ultrasound for growth and reassessment of the placental location at 30-32 weeks. Coding ====== Diagnoses O99.212 O44.42 Z3A.18 Z36.3 Procedures 61123: Detailed Anatomy 23487: Transvaginal, OB Procedure Note Ariana Madrid MD - 02/23/2025 Indication ======== Detailed anatomy BMI > 30 Depression Hx of scoliosis NIPT low risk female AFP negative Method ====== Transabdominal and transvaginal ultrasound examination. View: Sufficient ========= Number of fetuses: 1 Dating ====== DateDetailsGest. age BRADLEY LMP w + 3 d 07/24/2025 U/S 02/23/2025ased upon AC, BPD, Femur, HC18 w + 4 d 07/23/2025 Assigned dating based on the LMP, selected on w + 3 d 07/24/2025 General Evaluation Cardiac activity present. FHR 144 bpm. movements: present.Presentation: breech Placenta: Placental site: posterior, low lying Umbilical cord: Cord vessels: 3 vessel cord. Insertion site: placentalinsertion: normal Amniotic fluid: Amount of AF: normal amount. MVP 3.2 cm Biometry BPD 39.7mm 18w 0d 34% Hadlock OFD 54.3mm 19w 2d 84% Charisma HC 150.6mm 18w 0d 27%Hadlock Cerebellum tr 18.6mm 18w 5d 55% Rollins Nuchal fold 3.4mm AC 144.6mm 19w 5d 87%Hadlock Femur 29.6mm 19w 0d 70% Hadlock Humerus 28.5mm 19w 1d 82% Charisma Weight Calculation: EFW 284 g19w 1d 89% Hadlock EFW (lb,oz) 0 lb 10 oz EFW by Hadlock ([id number]) Head / Face / Neck Biometry: Coping Machine Assembler 4.4 mm CM 4.0 mm31% Nicolaides Inner IOD 11.8mm Nasal 6.0 mm bone Extremities / Bony Struc Biometry: Radius 22.5 mm18w 1d 45% Charisma Ulna 26.9 mm19w 5d 83% Charisma Tibia 23.1 mm18w 1d 47% Charisma Fibula 23.0 mm18w 0d 39% Charisma Anatomy The following structures appear normal: Head / Neck Cranium. Lateral ventricles. Choroidplexus. Midline falx. Cavum septi pellucidi. Cerebellum. Cisterna magna. Face Lips. Profile. Nose. Maxilla.Mandible. Orbits. Heart / Thorax 4-chamber view. RVOT view. LVOT view.3-vessel view. 4-eotfje-vudopxk view. Situs. Aortic arch view. Ductal archview. Superior vena cava. Inferior vena cava. Diaphragm. Abdomen Cord insertion. Stomach. Kidneys.Bladder. Genitals. Spine Cervical spine. Thoracic spine.Lumbar spine. Sacral spine. Extremities / Skeleton Right arm. Left arm. Right leg. Leftleg. The following structures were visualized: Face Lens. sex: female. Maternal Structures Cervix Cervical length 47.5 mm Right Ovary Normal Size 27 mm x 20 mm x 14 mm. Vol3.9 cm Left Ovary Normal Size 23 mm x 21 mm x 27 mm. Vol6.6 cm Pelletising Extruder Operator Comment Single IUP 18w 3d. Biometry is consistent with dates. Amniotic fluid volume appears normal. No identified abnormalities. A transvaginal exam was performed, a low-lying placenta is noted measuring1.2 cm from the internal cervical os. Impression ========= Reassuring assessment of growth and anatomy. Posterior low-lyingplacenta. Recommendation Follow up ultrasound for growth and reassessment of the placental locationat 30- 32 weeks. Coding ====== Diagnoses O99.212 O44.42 Z3A.18 Z36.3 Procedures 51269: Detailed Anatomy 63196: Transvaginal, OB Mara CARVAJAL UOB ORDERABLES Final Resul t from Last 3 Months Insurance [employer]ICA[employer] [facility]I SIMPLY CAID Care Teams Music Instructor Relationship Specialty [place] [address] [place] [address] PCP - Payer-assigned PCP 02/02/25
[2025-03-07 22:00] VITALS: BP 124/91; PULSE 90; RESP 16; O2SAT 100
[2025-03-07] MEDS: MORPHINE SULFATE (*CRX) 4 MG/ML INJ IV PUSH (22:16)
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
[2025-03-07 22:26] LABS: Basophils Percent Auto 0.3 % (0.2-1.2); Eosinophils Absolute Auto 0.2 K/mm3 (0-0.3); Eosinophils Percent Auto 1.3 % (0-4.4); Hematocrit 36.3 % (37.0-47.0); Hemoglobin 12.3 g/dL (12.0-15.0); Immature Granulocyte Absolute 0.16 K/mm3 (0.00-0.031); Immature Granulocyte Percent A 1.2 % (0-0.5); Lymphocytes Absolute Auto 2.16 K/mm3 (0.9-3.2); Lymphocytes Percent Auto 16.2 % (18.3-44.2); Mean Corpuscular HGB Conc 33.9 g/dl (32-36); Mean Corpuscular Hemoglobin 30.3 pg (26-34); Mean Corpuscular Volume 89.4 fl (80-100); Mean Platelet Volume 11.2 fl (7.4-10.4); Monocytes Absolute Auto 0.9 K/mm3 (0.1-0.6); Monocytes Percent Auto 6.6 % (2.6-8.5); Neutrophils Absolute Auto 9.9 K/mm3 (1.3-6.7); Neutrophils Percent Auto 74.4 % (45.5-73.1); Platelet Count Result 179 k/mm3 (150-375); Red Blood Count 4.06 M/mm3 (4.2-5.4); Red Cell Distribution Width 13.2 % (11.5-14.5); White Blood Count 13.3 K/mm3 (4.5-10.0)
[2025-03-07 22:35] LABS: Alanine Aminotransferase 15 U/L (6-35); Albumin Level 3.8 g/dL (3.5-5.1); Alkaline Phosphatase 80 U/L (38-126); Anion Gap 8 mmol/L (4-12); Aspartate Amino Transferase 24 U/L (14-36); Bilirubin,Total 0.3 mg/dL (0.2-1.3); Blood Urea Nitrogen 7 mg/dL (7-17); Calcium 9.5 mg/dL (8.4-10.2); Carbon Dioxide 22 mmol/L (22-30); Chloride 109 mmol/L (98-107); Estimated CRCL calculation 164 ml/min; Estimated Glomerular Filt Rate > 60; Glucose 96 mg/dL (65-110); Potassium 3.9 mmol/L (3.4-5.0); Sodium 139 mmol/L (137-145)
[2025-03-07] MEDS: HYDROmorphone HCL INJ (*CRX) 2 MG/ML VIAL 1 MG IV PUSH (23:17)
[2025-03-08 00:02] VITALS: BP 123/76; PULSE 85; RESP 18; O2SAT 99
[2025-03-08] MEDS: ceFAZolin 2 GM/D5W 50 ML 2 GM/50 ML BAG IVPB (00:54)
[2025-03-08 01:14] VITALS: BP 129/88; PULSE 89; RESP 16; O2SAT 99
[2025-03-08 02:06] VITALS: BP 129/88; PULSE 89; RESP 16; O2SAT 99
== END 2025-03-08 02:11 | disposition short-term general hospital (02) ==
PROVIDERS: Emergency Provider Emergency Medicine
DX: S82.851A Displaced trimalleolar fracture of right lower leg, initial encounter for closed fracture (principal); S93.04XA Dislocation of right ankle joint, initial encounter; O9A.212 Injury, poisoning and certain other consequences of external causes complicating pregnancy, second trimester; Z3A.20 20 weeks gestation of pregnancy; W17.89XA Other fall from one level to another, initial encounter
CPT/HCPCS: 27818; 36415; 73600; 73610; 73630; 80053; 85025; 96365; 96375; 99285; J0690; J1171; J2270